=== PATIENT | male | born 1970 | race Caucasian/White ===

== ENCOUNTER 2017-04-20 12:00 | Emergency (ER) | payer OTHER ==
[2017-04-20] MEDS ORDERED: IBUPROFEN 600 MG TAB PO ONE (13:40)
[2017-04-20 13:50] VITALS: RESP 18
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
[2017-04-20 18:04] VITALS: BP 150/84; PULSE 43; TEMP 98.1; O2SAT 95
== END 2017-04-20 18:05 | disposition home or self-care (01) ==
DX: S16.1XXA Strain of muscle, fascia and tendon at neck level, initial encounter (principal); S06.0X0A Concussion without loss of consciousness, initial encounter; V43.62XA Car passenger injured in collision with other type car in traffic accident, initial encounter; Y92.410 Unspecified street and highway as the place of occurrence of the external cause; Y99.8 Other external cause status; Y93.89 Activity, other specified